=== PATIENT | female | born 1985 | race Caucasian/White ===

== ENCOUNTER 2016-07-14 13:33 | Emergency (ER) | END 2016-07-14 15:13 | disposition home or self-care (01) | DX: J06.9 Acute upper respiratory infection, unspecified (principal) ==

== ENCOUNTER 2016-08-29 06:45 | Emergency (ER) | payer OTHER ==
[~2016-08-29] VITALS: Ht 160 cm; Wt 72.0 kg
[~2016-08-29 06:45] MED LIST: ACET500C5 PO; AZIT250T94 PO; BACTDS PO; BENZ100C70 PO; FERR159T PO; IBUP-1542 PO; METR500T PO; NITR-58 PO; PHEN-537 PO; PREN-17 PO
[2016-08-29 06:50] VITALS: Ht 160 cm; Wt 72.0 kg
[2016-08-29] MEDS ORDERED: KETO5DRO58 OP (07:20)
--- NOTE | 2016-08-29 09:16 | ERD ---
DATE OF SERVICE: HISTORY OF PRESENT ILLNESS: The patient is a 31-year-old female complaining of watery eyes for a mo [facility]. The patient states that she has a history of allergies. She has been using clear eyes with no alleviation of her symptoms. She states that she has no changes in vision. She does not wear cont acts or glasses. She has not had any purulence from the eyes and no pain. Denies any other medical problems. ALLERGIES: DENIES ALLERGIES TO MEDICATIONS. PAST SURGICAL HISTORY: Denies surgeries. SOCIAL HISTORY: ____ smoking. REVIEW OF SYSTEMS: A 12-point review of systems was done. Refer to HPI for positives, all other sy stems negative. PHYSICAL EXAMINATION VITAL SIGNS: Temperature is 98.1, pulse 81, blood pressure is 123/71, respiratory 18, O2 saturation 100% on room air. Pain intensity is 0/10. GENERAL: The patient is well-appearing, well-nourished, no acute distress. HEENT: There is no injection noted of the sclerae. Pupils equal round and reactive to light. No p urulence noted around the eyes. No swelling noted to the ocular tissue. CHEST: Clear to auscultation bilaterally. There are no rales, wheezes or rhonchi. HEART: Regular rate and rhythm. No murmurs, clicks, rubs or gallops. No S3 or S4. SKIN: There is no apparent rash or petechia. The skin is warm and dry. EMERGENCY ROOM COURSE: The patient had visual acuity done in the ER. The patient's left eye is 20/ 25, right eye 20/25, bilateral 20/25 with no use of corrective lenses. DIAGNOSIS: Allergic conjunctivitis. MEDICAL DECISION MAKING: Patient's exam is within normal limits. Visual acuity is within normal li mits. Patient's symptoms have been going on for a week and is indicative of allergic conjunctivitis . I did not feel that there was indication for further evaluation. DISCHARGE: The patient is discharged stable. Patient is given a prescription for Zaditor and told to follow up with primary care within 1 to 2 days for reevaluation. The patient was told if symptom s progress or worsen to return to the ER. All other questions answered at time of discharge. Disch arge summary given at the time of departure. Patient understood and complied with plan. Dictated By: MURTAZA JONES for ITALIA HALL/NADIA Conf#: [id number] [facility]#: [id number]
== END 2016-08-29 07:26 | disposition home or self-care (01) ==
LOC: FTE 06:45
DX: H10.13 Acute atopic conjunctivitis, bilateral (principal)
CPT/HCPCS: 99283

== ENCOUNTER 2016-10-26 12:14 | Emergency (ER) | payer OTHER ==
[~2016-10-26] VITALS: Ht 157.5 cm; Wt 78.0 kg
[~2016-10-26 12:14] MED LIST changes: +KETO5DRO58 OP
[2016-10-26 12:16] VITALS: Ht 157.5 cm; Wt 78.0 kg
[2016-10-26] MEDS ORDERED: AZIT250T94 PO (14:13)
[2016-10-26] MEDS ORDERED: MED4DP PO (14:13)
--- NOTE | 2016-10-26 18:26 | ERD ---
ER Documentation Chief Complaint Date/Time DATE: 10/26/16 TIME: 18:24 Chief Complaint Pt with ST and fevers X 3 days HPI This patient is a 31-year-old female with no significant medical history presenting to the emergency department for sore throat ongoing for the past 3 days. Symptoms are localized to the throat without radiation. She describes the pain as aching. Aggravating symptoms include eating and drinking. The patient has taken lozenges at home with no relief of symptoms. Symptoms are currently worsening. The patient denies fevers, chills, cough, or other symptoms at this time. ROS All systems reviewed and are negative except as per history of present illness. Medications Home Meds Active Scripts Methylprednisolone* (Medrol* DOSE PACK) 4 Mg/Dose-Pack Tab.ds.pk, 4 MG PO . DIRECTED, #1 PACKET Prov:OMID YOST PA-C 10/26/16 Azithromycin* (Zithromax*) 250 Mg Tablet, 250 MG PO .ZPACK DIRECTED, #6 TAB TAKE 500 MG (2 TABS) THE FIRST DAY THEN 250 MG (1 TAB) DAYS 2-5 Prov:OMID YOST PA-C 10/26/16 Ketotifen Fumarate (ZADITOR) 5 Ml Drops, 5 ML OP BID, #1 BOTTLE Prov:GEETA BRADLEY PA-C 08/29/16 Ibuprofen* (Motrin*) 600 Mg Tab, 600 MG PO Q6, #30 TAB Prov:AUSTYN LANDIN PA-C 07/14/16 Acetaminophen* (Tylophen*) 500 Mg Capsule, 1 CAP PO Q6H Y for PAIN AND OR ELEVATED TEMP, #20 CAP Prov:AUSTYN LANDIN PA-C 07/14/16 Azithromycin* (Zithromax*) 250 Mg Tablet, 250 MG PO .ZPACK DIRECTED, #6 TAB TAKE 500 MG (2 TABS) THE FIRST DAY THEN 250 MG (1 TAB) DAYS 2-5 Prov:AUSTYN LANDIN PA-C 07/14/16 Benzonatate* (Tessalon Perle*) 100 Mg Capsule, 100 MG PO Q8H Y for COUGH for 14 Days, CAP Prov:AUSTYN LANDIN PA-C 07/14/16 Ibuprofen* (Ibuprofen*) 600 Mg Tablet, 600 MG PO Q6, #20 TAB Prov:RIGO STEWART PA-C 07/25/15 Phenazopyridine Hcl* (Pyridium*) 100 Mg Tab, 100 MG PO TID Y for PAIN, #12 TAB 0 Refills Prov:AUGUST DORAN PA-C 07/08/15 Sulfamethoxazole-Trimethoprim* (Bactrim* DS) 800-160 Mg Tab, 1 TAB PO BID, #14 TAB 0 Refills Prov:AUGUST DORAN PA-C 07/08/15 Metronidazole* (Flagyl*) 500 Mg Tablet, 500 MG PO BID for 7 Days, TAB Prov:MAIRA MCKEON I. EMAIL PRODUCTION SPECIALIST 05/27/15 Nitrofurantoin Monohyd Macrocr* (Macrobid*) 100 Mg Capsr, 100 MG PO HS for 5 Days, CAP Prov:MAIRA MCKEON I. EMAIL PRODUCTION SPECIALIST 05/27/15 Reported Medications Ferrous Sulfate, Dried (Iron) 159 Mg Tablet.er, 159 MG PO DAILY 08/03/13 Vit-Iron Fumarate-FA (Prenatabs FA) 1 Tab Tablet, 1 TAB PO DAILY 02/20/13 [None] No Conflict Check 12/26/09 Allergies Allergies: Coded Allergies: No Known Drug Allergy (Verified Allergy, Unknown, 05/27/15) PMhx/Soc History of Surgery: No Anesthesia Reaction: No Hx Neurological Disorder: No Hx Respiratory Disorders: No Hx Cardiac Disorders: No Hx Psychiatric Problems: No Hx Miscellaneous Medical Probl: No Hx Alcohol Use: No Hx Substance Use: No Hx Tobacco Use: No FmHx Noncontributory for chief complaint. Physical Exam Vitals Vital Signs Date Time Temp Pulse Resp B/P Pulse Ox O2 Delivery O2 Flow Rate FiO2 10/26/16 12:16 99.0 93 16 129/78 98 Physical Exam Const: The patient is resting comfortably in no acute distress. Nontoxic- appearing. Head: Atraumatic Eyes: Normal Conjunctiva ENT: Normal External Ears, Nose and Mouth. There is tonsillar hypertrophy, erythema, and scant exudate present bilaterally. The airway is clear and there is no uvular deviation. Neck: Full range of motion..~ No meningismus. Resp: Clear to auscultation bilaterally Cardio: Regular rate and rhythm, no murmurs Abd: Soft, non tender, non distended. Normal bowel sounds Skin: No petechiae or rashes Back: No midline or flank tenderness Ext: No cyanosis, or edema Neur: Awake and alert Psych: Normal Mood and Affect Procedures/MDM 31-year-old female presents secondary to complaints of sore throat for the past 2 days. On physical examination the patient's vitals are within normal limits. The throat is erythematous and there is tonsillar hypertrophy and exudate bilaterally. There is no uvular deviation and the airway is clear. I have low suspicion for peritonsillar abscess, retropharyngeal abscess, mastoiditis, septicemia, or other emergent conditions. The patient is stable for outpatient management with prescriptions for azithromycin, and Medrol Dosepak. The patient understands and agrees with the discharge plan of diagnosis. All questions and concerns were addressed. Strict ER return precautions were discussed. The patient is to have close follow-up with the primary care physician in the next 1-2 days. Departure Diagnosis: Primary Impression: Sore throat Additional Impression: Tonsillitis Condition: Fair Patient Instructions: Self-Care for Sore Throats Additional Instructions: Follow up with your PCP within the next 1-3 days. Return the the emergency department immediately if symptoms worsen or change. If you have any questions regarding medications, ask your pharmacist or us before you leave. If any adverse reactions, occur while taking your medications, discontinue the treatment and return to the emergency department immediately. If any new or worsening symptoms, uncontrolled fevers, or other unexplained symptoms occur, return to the emergency department immediately. Take your medications as directed, and complete the entire course of treatment. OMID YOST PA-C October 26, 2016 18:26
== END 2016-10-26 14:16 | disposition home or self-care (01) ==
LOC: FTE 12:14 → E/R 14:16
DX: J03.90 Acute tonsillitis, unspecified (principal)
CPT/HCPCS: 99284

== ENCOUNTER 2017-02-26 22:23 | Emergency (ER) | payer OTHER ==
[~2017-02-26] VITALS: Ht 162.6 cm; Wt 89.0 kg
[~2017-02-26 22:23] MED LIST changes: +MED4DP PO
[2017-02-26 22:29] VITALS: Ht 162.6 cm; Wt 89.0 kg
[2017-02-26] MEDS ORDERED: TYL500 PO (23:37)
[2017-02-26] MEDS ORDERED: OFLO5DRO7 LEFT EAR (23:37)
--- NOTE | 2017-02-27 | ERD ---
ER Documentation Chief Complaint Date/Time DATE: 02/26/17 TIME: 23:55 Chief Complaint L ear pain for 2 weeks HPI This is a 31-year-old female presents to the ER with left ear pain for the last 3 days. Left ear pain is now worsening. Patient denies any fever or chills. She denies any sore throat, cough or cold symptoms. She denies any chest pain or shortness of breath. Patient denies any vaginal discharge, vaginal bleeding or pelvic pain. There are no sick contacts at home. ROS 12 point review of systems was done, all negative except per HPI. Medications Home Meds Active Scripts Acetaminophen* (Tylenol*) 500 Mg Tab, 500 MG PO Q4H Y for MILD PAIN LEVEL 1-3 for 3 Days, TAB Prov:REENA OWEN 02/26/17 Ofloxacin Otic (Ofloxacin Otic) 5 Ml Drops, 5 DROP LEFT EAR BID for 10 Days, #1 BOTTLE Prov:REENA OWEN 02/26/17 Methylprednisolone* (Medrol* DOSE PACK) 4 Mg/Dose-Pack Tab.ds.pk, 4 MG PO . DIRECTED, #1 PACKET Prov:OMID YOST PA-C 10/26/16 Azithromycin* (Zithromax*) 250 Mg Tablet, 250 MG PO .ZPACK DIRECTED, #6 TAB TAKE 500 MG (2 TABS) THE FIRST DAY THEN 250 MG (1 TAB) DAYS 2-5 Prov:OMID YOST PA-C 10/26/16 Ketotifen Fumarate (ZADITOR) 5 Ml Drops, 5 ML OP BID, #1 BOTTLE Prov:GEETA BRADLEY PA-C 08/29/16 Ibuprofen* (Motrin*) 600 Mg Tab, 600 MG PO Q6, #30 TAB Prov:AUSTYN LANDIN PA-C 07/14/16 Acetaminophen* (Tylophen*) 500 Mg Capsule, 1 CAP PO Q6H Y for PAIN AND OR ELEVATED TEMP, #20 CAP Prov:AUSTYN LANDIN PA-C 07/14/16 Azithromycin* (Zithromax*) 250 Mg Tablet, 250 MG PO .ZPACK DIRECTED, #6 TAB TAKE 500 MG (2 TABS) THE FIRST DAY THEN 250 MG (1 TAB) DAYS 2-5 Prov:AUSTYN LANDIN PA-C 07/14/16 Benzonatate* (Tessalon Perle*) 100 Mg Capsule, 100 MG PO Q8H Y for COUGH for 14 Days, CAP Prov:AUSTYN LANDIN PA-C 07/14/16 Ibuprofen* (Ibuprofen*) 600 Mg Tablet, 600 MG PO Q6, #20 TAB Prov:RIGO STEWART PA-C 07/25/15 Phenazopyridine Hcl* (Pyridium*) 100 Mg Tab, 100 MG PO TID Y for PAIN, #12 TAB 0 Refills Prov:AUGUST DORAN PA-C 07/08/15 Sulfamethoxazole-Trimethoprim* (Bactrim* DS) 800-160 Mg Tab, 1 TAB PO BID, #14 TAB 0 Refills Prov:AUGUST DORAN PA-C 07/08/15 Metronidazole* (Flagyl*) 500 Mg Tablet, 500 MG PO BID for 7 Days, TAB Prov:MCKEONMAIRA I. VIDEO GAMES MECHANIC 05/27/15 Nitrofurantoin Monohyd Macrocr* (Macrobid*) 100 Mg Capsr, 100 MG PO HS for 5 Days, CAP Prov:MCKEONMAIRA I. VIDEO GAMES MECHANIC 05/27/15 Reported Medications Ferrous Sulfate, Dried (Iron) 159 Mg Tablet.er, 159 MG PO DAILY 08/03/13 Vit-Iron Fumarate-FA (Prenatabs FA) 1 Tab Tablet, 1 TAB PO DAILY 02/20/13 [None] No Conflict Check 12/26/09 Allergies Allergies: Coded Allergies: No Known Drug Allergy (Verified Allergy, Unknown, 05/27/15) PMhx/Soc Medical and Surgical Hx: pt denies Medical Hx, pt denies Surgical Hx History of Surgery: No Anesthesia Reaction: No Hx Neurological Disorder: No Hx Respiratory Disorders: No Hx Cardiac Disorders: No Hx Psychiatric Problems: No Hx Miscellaneous Medical Probl: No Hx Alcohol Use: No Hx Substance Use: No Hx Tobacco Use: No Smoking Status: Never smoker Physical Exam Vitals Vital Signs Date Time Temp Pulse Resp B/P Pulse Ox O2 Delivery O2 Flow Rate FiO2 02/26/17 22:29 99.1 95 18 113/68 97 Physical Exam GENERAL: The patient is well-developed, well-nourished, in no acute distress. HEENT: Atraumatic. Pupils equal, round and reactive to light. Extraocular muscles are grossly intact. Conjunctivae pink, no discharge. There is erythema of the left external ear canal. There is no discharge. Positive tragus tenderness. No mastoid tenderness. Tonsilar erythema with no exudates or uvular deviation. Clear rhinorrhea. RESPIRATORY: Clear to auscultation bilaterally. There are no rales, wheezes or rhonchi. HEART: Regular rate and rhythm. No murmurs, clicks, rubs or gallops. NEUROLOGIC: Alert and oriented. Procedures/MDM This is a 31-year-old female presents to the ER with left ear pain. Patient was found to have external otitis on physical examination, she will be sent home with ofloxacin and Tylenol. Patient is afebrile and extremely well- appearing. Suspicion for mastoiditis is low. Patient needs to follow-up with her primary care doctor within 1-2 days or return to ER sooner if symptoms worsen. My medical decision making shared with the patient she understands and agrees with plan. Departure Diagnosis: Primary Impression: Otitis externa Condition: Stable Patient Instructions: External Ear Infection (Adult) Additional Instructions: Call your primary care doctor TOMORROW for an appointment during the next 1-2 days.See the doctor sooner or return here if your condition worsens before your appointment time. REENA OWEN Feb 27, 2017 00:00
== END 2017-02-26 23:43 | disposition home or self-care (01) ==
LOC: FTE 22:23
DX: O99.89 Other specified diseases and conditions complicating pregnancy, childbirth and the puerperium (principal); H60.92 Unspecified otitis externa, left ear; Z3A.22 22 weeks gestation of pregnancy
CPT/HCPCS: 99284

== ENCOUNTER 2017-05-30 20:43 | Emergency (ER) | payer OTHER ==
[~2017-05-30] VITALS: Ht 160 cm; Wt 97.0 kg
[~2017-05-30 20:43] MED LIST changes: -KETO5DRO58 OP; +KETO5DRO71 OP; +OFLO5DRO7 LEFT EAR; +TYL500 PO
[2017-05-30 21:02] VITALS: Ht 160 cm; Wt 97.0 kg
[2017-05-30] MEDS ORDERED: LEVALBUTEROL (NEB) 1.25 MG/0.5 ML AMP HHN ONE (23:00)
[2017-05-30] MEDS ORDERED: LORA10TA3 PO (23:30)
[2017-05-30] MEDS ORDERED: FLUT16SP17 NASAL (23:30)
--- NOTE | 2017-05-30 23:39 | ERD ---
ER Documentation Chief Complaint Chief Complaint cough for 3 days HPI This is a 31-year-old female who is approximately 34 weeks who presents to the emergency department for complaints of nasal congestion, cough, and difficulty breathing 3 days. Patient states that she experiences the difficulty breathing when laying down. She denies chest pain, abdominal pain, vaginal bleeding, dysuria, hematuria or increased swelling of the lower extremities. She denies a history of asthma or DVT. His cardiac history. She has not attempted to treat her symptoms with medication thus far. ROS All systems reviewed and are negative except as per history of present illness. Medications Home Meds Active Scripts Loratadine* (Loratadine*) 10 Mg Tablet, 10 MG PO DAILY, #7 TAB Prov:BRIAN VALDOVINOS PA-C 05/30/17 Fluticasone Propionate* (Fluticasone Propionate* Nasal) 50 Mcg/[place] - 16 Gm [place].susp, 1 SPRAY NASAL BID, #1 BOTTLE TO EACH NOSTRIL Prov:BRIAN VALDOVINOS PA-C 05/30/17 Acetaminophen* (Tylenol*) 500 Mg Tab, 500 MG PO Q4H Y for MILD PAIN LEVEL 1-3 for 3 Days, TAB Prov:REENA OWEN 02/26/17 Ofloxacin Otic (Ofloxacin Otic) 5 Ml Drops, 5 DROP LEFT EAR BID for 10 Days, #1 BOTTLE Prov:REENA OWEN 02/26/17 Methylprednisolone* (Medrol* DOSE PACK) 4 Mg/Dose-Pack Tab.ds.pk, 4 MG PO . DIRECTED, #1 PACKET Prov:OMID YOST PA-C 10/26/16 Azithromycin* (Zithromax*) 250 Mg Tablet, 250 MG PO .IsabelPATIFFANIE DIRECTED, #6 TAB TAKE 500 MG (2 TABS) THE FIRST DAY THEN 250 MG (1 TAB) DAYS 2-5 Prov:OMID YOST PA-C 10/26/16 Ketotifen Fumarate (ZADITOR) 5 Ml Drops, 5 ML OP BID, #1 BOTTLE Prov:GEETA BRADLEY PA-C 08/29/16 Ibuprofen* (Motrin*) 600 Mg Tab, 600 MG PO Q6, #30 TAB Prov:AUSTYN LANDIN PA-C 07/14/16 Acetaminophen* (Tylophen*) 500 Mg Capsule, 1 CAP PO Q6H Y for PAIN AND OR ELEVATED TEMP, #20 CAP Prov:AUSTYN LANDIN PA-C 07/14/16 Azithromycin* (Zithromax*) 250 Mg Tablet, 250 MG PO .ZPACK DIRECTED, #6 TAB TAKE 500 MG (2 TABS) THE FIRST DAY THEN 250 MG (1 TAB) DAYS 2-5 Prov:AUSTYN LANDIN PA-C 07/14/16 Benzonatate* (Tessalon Perle*) 100 Mg Capsule, 100 MG PO Q8H Y for COUGH for 14 Days, CAP Prov:AUSTYN LANDIN PA-C 07/14/16 Ibuprofen* (Ibuprofen*) 600 Mg Tablet, 600 MG PO Q6, #20 TAB Prov:RIGO STEWART PA-C 07/25/15 Phenazopyridine Hcl* (Pyridium*) 100 Mg Tab, 100 MG PO TID Y for PAIN, #12 TAB 0 Refills Prov:AUGUST DORAN PA-C 07/08/15 Sulfamethoxazole-Trimethoprim* (Bactrim* DS) 800-160 Mg Tab, 1 TAB PO BID, #14 TAB 0 Refills Prov:AUGUST DORAN PA-C 07/08/15 Metronidazole* (Flagyl*) 500 Mg Tablet, 500 MG PO BID for 7 Days, TAB Prov:MAIRA MCKEON I. TELLER 05/27/15 Nitrofurantoin Monohyd Macrocr* (Macrobid*) 100 Mg Capsr, 100 MG PO HS for 5 Days, CAP Prov:MAIRA MCKEON I. TELLER 05/27/15 Reported Medications Ferrous Sulfate, Dried (Iron) 159 Mg Tablet.er, 159 MG PO DAILY 08/03/13 Vit-Iron Fumarate-FA (Prenatabs FA) 1 Tab Tablet, 1 TAB PO DAILY 02/20/13 [None] No Conflict Check 12/26/09 Allergies Allergies: Coded Allergies: No Known Drug Allergy (Verified Allergy, Unknown, 05/30/17) PMhx/Soc Medical and Surgical Hx: pt denies Medical Hx, pt denies Surgical Hx History of Surgery: No Anesthesia Reaction: No Hx Neurological Disorder: No Hx Respiratory Disorders: No Hx Cardiac Disorders: No Hx Psychiatric Problems: No Hx Miscellaneous Medical Probl: No Hx Alcohol Use: No Hx Substance Use: No Hx Tobacco Use: No Physical Exam Vitals Vital Signs Date Time Temp Pulse Resp B/P Pulse Ox O2 Delivery O2 Flow Rate FiO2 05/30/17 23:06 106 20 97 21 05/30/17 21:02 98.9 111 16 128/75 100 Physical Exam Const: Well developed, well-nourished, in no acute distress Head: Atraumatic Eyes: Normal Conjunctiva ENT: Normal External Ears, Nose and Mouth. Posterior pharynx without erythema swelling or exudate. Tympanic membranes normal. No tenderness upon palpation of the facial sinuses. Active rhinorrhea. Neck: Full range of motion..~ No meningismus. Resp: Clear to auscultation bilaterally, no wheezes, rhonchi or rales Cardio: Regular rate and rhythm, no murmurs Abd: Soft, non tender, non distended. Normal bowel sounds Skin: No petechiae or rashes Back: No midline or flank tenderness Ext: No cyanosis, or edema Neur: Awake and alert Psych: Normal Mood and Affect Results 24 hrs Current Medications Medications (Trade) Dose Ordered Sig/Pee Route PRN Reason Start Time Stop Time Status Last Admin Dose Admin Levalbuterol (Xopenex Neb) 1.25 mg ONCE ONCE HHN 05/30/17 23:00 05/30/17 23:01 DC 05/30/17 23:06 Procedures/MDM This is an otherwise healthy 31-year-old female who is approximately 34 weeks who presents to the emergency department for complaints of nasal congestion cough, and difficulty breathing when laying down 3 days. Patient nontoxic and well-nourished upon arrival. Vital signs reviewed and within normal limits. Lung sounds clear. Chest x-ray was offered but refused as I explained the risks and benefits associated with . Patient received a nebulizer treatment while in the emergency department and reported some improvement of symptoms. I have recommended fluticasone nasal spray, loratadine , Tylenol, and fluids. Low suspicion for pneumonia, strep pharyngitis, otitis media, acute coronary syndrome, PE, threatened , UTI, preeclampsia or eclampsia. Symptoms likely due to an acute viral syndrome. Based on patient's history of present illness and physical examination the decision was made to discharge. The patient was re-evaluated after ED treatment and stabilizing measures, and symptoms have improved. There is no evidence of life threatening injuries or illnesses at this time. On re-examination, patient resting in no distress, stable vital signs, reports feeling better and safe for discharge with outpatient follow up with PMD in 1-2 days. Patient given return precautions. Departure Diagnosis: Primary Impression: Viral URI Additional Impressions: Shortness of breath Nasal congestion Condition: Good Patient Instructions: Uri, Viral, No Abx (Adult) Additional Instructions: Call your primary care doctor TOMORROW for an appointment during the next 1-2 days.See the doctor sooner or return here if your condition worsens before your appointment time. BRIAN VALDOVINOS PA-C May 30, 2017 23:39
[2017-05-31 00:05] VITALS: BP 122/67; PULSE 101; RESP 18; TEMP 98.7
== END 2017-05-31 00:07 | disposition home or self-care (01) ==
LOC: FTE 20:43
DX: J06.9 Acute upper respiratory infection, unspecified (principal)
CPT/HCPCS: 94664; Z7502; Z7610

== ENCOUNTER 2017-06-29 16:15 | Inpatient (IN) | END 2017-07-03 18:40 | disposition home or self-care (01) | DRG 775 ==

== ENCOUNTER 2017-07-10 08:38 | Emergency (ER) | END 2017-07-10 10:22 | disposition home or self-care (01) ==

== ENCOUNTER 2017-12-22 14:49 | Observation (INO) | END 2017-12-24 11:35 | disposition home or self-care (01) ==

== ENCOUNTER 2018-07-05 08:34 | Emergency (ER) | payer OTHER ==
[~2018-07-05] VITALS: Wt 84.5 kg
[2018-07-05 08:35] VITALS: BP 125/65; PULSE 78; RESP 16
[2018-07-05] MEDS ORDERED: IBUP-1542 PO (08:49)
[2018-07-05] MEDS ORDERED: CETI10CA PO (08:49)
[2018-07-05] MEDS ORDERED: BENZ-6 PO (08:49)
--- NOTE | 2018-07-05 09:32 | ERD ---
ER Documentation Chief Complaint Chief Complaint THROAT PAIN X5 DAYS, COUGH, FEVER HPI 33-year-old female presents emerged from complaining of moderate sore throat, cough fever for the past 5 days. She denies any chest pain shortness of breath. States that she is tried lozenges with no relief ROS All systems reviewed and are negative except as per history of present illness. Medications Home Meds Active Scripts Cetirizine Hcl* (Zyrtec*) 10 Mg Capsule, 10 MG PO DAILY, #30 TAB.CHEW Prov:MARGOT DORSEY PA-C 07/05/18 Benzonatate* (Tessalon Perle*) 100 Mg Capsule, 100 MG PO Q8H PRN for COUGH, #30 CAP Prov:MARGOT DORSEY PA-C 07/05/18 Ibuprofen* (Motrin*) 600 Mg Tab, 600 MG PO Q6H PRN for PAIN AND OR ELEVATED T EMP, #30 TAB Prov:MARGOT DORSEY PA-C 07/05/18 Allergies Allergies: Coded Allergies: No Known Drug Allergy (Verified Allergy, Unknown, 12/22/17) PMhx/Soc History of Surgery: No Anesthesia Reaction: No Hx Neurological Disorder: No Hx Respiratory Disorders: No Hx Cardiac Disorders: No Hx Psychiatric Problems: No Hx Miscellaneous Medical Probl: No Hx Alcohol Use: No Hx Substance Use: No Hx Tobacco Use: No Smoking Status: Never smoker Physical Exam Vitals Vital Signs Date Temp Pulse Resp B/P (MAP) Pulse Ox O2 O2 Flow FiO2 Time Delivery Rate 07/05/18 97.2 78 16 125/65 99 08:35 (85) Physical Exam Const: No acute distress Head: Atraumatic Eyes: Normal Conjunctiva ENT: Normal External Ears, Nose and Mouth. Neck: Full range of motion. No meningismus. Resp: Clear to auscultation bilaterally Cardio: Regular rate and rhythm, no murmurs Abd: Soft, non tender, non distended. Normal bowel sounds Skin: No petechiae or rashes Back: No midline or flank tenderness Ext: No cyanosis, or edema Neur: Awake and alert Psych: Normal Mood and Affect Procedures/MDM This is a 33-year-old female presents emergency department with signs symptoms with a viral upper respiratory infection and laryngitis. There is no signs of differentials, peritonsillar abscess, pneumonia or other emergent condition at this time. Patient is well-appearing stable to be discharged home with prescription for Tessalon Perles, Motrin and Zyrtec. Return precautions given she understands with this plan Departure Diagnosis: Primary Impression: Laryngitis Condition: Stable Patient Instructions: Laryngitis, Uri, Viral, No Abx (Adult) Referrals: DANIEL ATWOOD MD Additional Instructions: FOLLOW UP WITH YOUR PRIMARY CARE PHYSICIAN TOMORROW.Return to this facility if you are not improving as expected. Take all medicines as directed. Return to this facility if you are not improving as expected. MARGOT DORSEY PA-C Jul 05, 2018 09:32
== END 2018-07-05 09:15 | disposition home or self-care (01) ==
LOC: FTE 08:34
DX: J04.0 Acute laryngitis (principal)
CPT/HCPCS: 99283

== ENCOUNTER 2018-09-08 08:48 | Emergency (ER) | payer OTHER ==
[~2018-09-08] VITALS: Ht 167.6 cm; Wt 87.9 kg
[~2018-09-08 08:48] MED LIST changes: -ACET500C5 PO; -AZIT250T94 PO; -BACTDS PO; +BENZ-6 PO; -BENZ100C70 PO; +CETI10CA PO; -FERR159T PO; -KETO5DRO71 OP; -MED4DP PO; -METR500T PO; -NITR-58 PO; -OFLO5DRO7 LEFT EAR; -PHEN-537 PO; -PREN-17 PO; -TYL500 PO
[2018-09-08 08:51] VITALS: BP 118/71; PULSE 75; RESP 20; Ht 167.6 cm; Wt 87.9 kg
[2018-09-08] MEDS ORDERED: LEVO5TAB28 PO (09:14)
[2018-09-08] MEDS ORDERED: KETO5DRO71 OP (09:14)
--- NOTE | 2018-09-08 12:26 | ERD ---
ER Documentation Chief Complaint Chief Complaint Complains of eye irritation x 3 days HPI 33-year-old female presenting with itchy eyes and scratchy throat. Patient states the symptoms have been going on for the last week. She is been taking Benadryl with no alleviation of symptoms. Denies any fevers. Denies other medical problems. NKDA. Surgical history denies. Social history denies ROS All systems reviewed and are negative except as per history of present illness. Medications Home Meds Active Scripts Levocetirizine Dihydrochloride (Xyzal) 5 Mg Tablet, 5 MG PO QPM, #30 TAB Prov:GEETA BRADLEY PA-C 09/08/18 Ketotifen Fumarate (ZADITOR) 5 Ml Drops, 5 ML OP QID, #1 BOTTLE Prov:GEETA BRADLEY PA-C 09/08/18 Cetirizine Hcl* (Zyrtec*) 10 Mg Capsule, 10 MG PO DAILY, #30 TAB.CHEW Prov:MARGOT DORSEY PA-C 07/05/18 Benzonatate* (Tessalon Perle*) 100 Mg Capsule, 100 MG PO Q8H PRN for COUGH, #30 CAP Prov:MARGOT DORSEY PA-C 07/05/18 Ibuprofen* (Motrin*) 600 Mg Tab, 600 MG PO Q6H PRN for PAIN AND OR ELEVATED TEMP, #30 TAB Prov:MARGOT DORSEY PA-C 07/05/18 Allergies Allergies: Coded Allergies: No Known Drug Allergy (Verified Allergy, Unknown, 12/22/17) PMhx/Soc History of Surgery: No Anesthesia Reaction: No Hx Neurological Disorder: No Hx Respiratory Disorders: No Hx Cardiac Disorders: No Hx Psychiatric Problems: No Hx Miscellaneous Medical Probl: No Hx Alcohol Use: No Hx Substance Use: No Hx Tobacco Use: No Smoking Status: Never smoker FmHx Family History: No diabetes, No coronary disease, No other Physical Exam Vitals Vital Signs Date Temp Pulse Resp B/P (MAP) Pulse Ox O2 O2 Flow FiO2 Time Delivery Rate 09/08/18 97.0 75 20 118/71 100 08:51 (87) Physical Exam GENERAL: The patient is well-appearing, well-nourished, in no acute distress HEENT: Atraumatic. Conjunctivae are pink. Pupils equal, round, and reactive to light. There is no scleral icterus. Tympanic membranes clear bilaterally. Chandu pharynx clear. NECK: C-spine is soft and supple. There is no meningismus. There is no cervical lymphadenopathy. CHEST: Clear to auscultation bilaterally. There are no rales, wheezes or rhonchi. HEART: Regular rate and rhythm. No murmurs, clicks, rubs or gallops. Procedures/MDM MDM: 33-year-old female presenting with allergic rhinitis. Patient will be d ischarged with supportive medications. I have low suspicion for meningitis or sepsis. Patient is discharged with stricter precautions. All questions answered at discharge Departure Diagnosis: Primary Impression: Allergic reaction Condition: Stable Patient Instructions: Seasonal Allergy Referrals: [facility] Additional Instructions: FOLLOW UP WITH YOUR PRIMARY CARE PHYSICIAN TOMORROW.Return to this facility if you are not improving as expected. GEETA BRADLEY PA-C Sep 08, 2018 12:26
== END 2018-09-08 10:54 | disposition home or self-care (01) ==
LOC: FTE 08:48
DX: H57.89 Other specified disorders of eye and adnexa (principal); R09.89 Other specified symptoms and signs involving the circulatory and respiratory systems
CPT/HCPCS: 99282